=== PATIENT | female | born 1980 ===

== ENCOUNTER 2020-12-26 15:15 | Day surgery (SDC) | payer OTHER ==
[2020-12-26] VITALS (9 sets, daily range): BP systolic 114–135; BP diastolic 48–75; PULSE 77–91; TEMP 98.2–99.6
[~2020-12-26] VITALS: Ht 160 cm; Wt 50.0 kg
[2020-12-26] MEDS ORDERED: ALDACTONE50 MG PO (15:32)
[2020-12-26] MEDS ORDERED: AFIRMELLE-28 T1 EACH PO (15:33)
[2020-12-26] MEDS ORDERED: ONE-A-DAY ESSE1 EACH PO (15:34)
--- NOTE | 2020-12-26 15:47 | NUR ---
PT ARRIVED ON FLOOR FROM [facility],@1520. DR LUCAS IN TO SEE PT. CONSENT SIGNED ON CHART. KE MANCIA TO PERIOP WITH PT AT THIS TIME.
[2020-12-26] MEDS ORDERED: PYRIDIUM 100MG100 MG PO (15:48)
[2020-12-26] MEDS ORDERED: LEVAQUIN 5500 MG/TA1 PO (15:49)
--- NOTE | 2020-12-26 17:02 | NUR ---
PT TO ROOM 347 PER BED WITH REPORT FROM KE MANCIA. PT IS DROWSEY BUT AROUSEABLE, LUNGS CLEAR, VSS BOWEL SOUNDS PRESENT. SPOKE WITH BEFORE AND AFTER PROCEEDURE.
--- NOTE | 2020-12-26 19:30 | NUR ---
PT READY FOR DISCHARGE. REMOVED IV SITE FROM RT WRIST, ANGIOCATH INTACT. COMPUTER SERVICES WERE DOWN AT THIS TIME. DID VERBAL INSTRUCTIONS FOR DISCHARGE. RETURN TO ED IF ELEVATED TEMP >100.5. DRINK PLENTY OF FLUIDS, REST IF URINE BECOMES TO BLOODY. CALL DR BEAR OFFICE FOR FOLLOW UP APPT. PT VERBALIZED UNDERSTANDING.
--- NOTE | 2020-12-26 20:00 | NUR ---
DISCHARGED TO PRIVATE VEHICLE PER W/C. PERSONAL BELONGINGS SENT WITH PATIENT.
== END 2020-12-26 20:05 | disposition home or self-care (01) ==
LOC: SDCO 15:15 → SURG 15:15 → SDCO 20:05
DX: N20.1 Calculus of ureter (principal); N13.5 Crossing vessel and stricture of ureter without hydronephrosis; R39.15 Urgency of urination; I10 Essential (primary) hypertension; R50.9 Fever, unspecified; Z79.899 Other long term (current) drug therapy
CPT/HCPCS: OP; C1769; C2617; J0690; J1100; J1885; J2250; J2405; J2704; J3010; Q9967